=== PATIENT | male | born 1965 | race Hispanic/Latino ===

== ENCOUNTER 2023-09-08 17:38 | Inpatient (IN) | payer MEDICAID ==
[~2023-09-08] VITALS: Ht 170.2 cm; Wt 108.0 kg
[2023-09-08 18:15] LABS: BASOPHILS # (AUTO) 0.06 K/uL (0.00-0.20); BASOPHILS % (AUTO) 0.7 % (0.0-5.0); EOSINOPHILS # (AUTO) 0.31 K/uL (0.00-0.70); EOSINOPHILS % (AUTO) 3.8 % (0.0-8.0); HEMATOCRIT 41.5 % (42-54); IMMATURE GRANULOCYTE ABSOLUTE 0.04 K/uL (0-1); LYMPHOCYTES # (AUTO) 2.7 K/uL (1.0-4.8); LYMPHOCYTES % (AUTO) 33.1 % (21.0-51.0); MEAN CORPUSCULAR HEMOGLOBIN 29.3 pg (27.0-33.0); MEAN CORPUSCULAR VOLUME 88.9 fL (79-99); MONOCYTES # (AUTO) 0.6 K/uL (0.1-1.0); MONOCYTES % (AUTO) 7.8 % (3.0-13.0); NEUTROPHILS # (AUTO) 4.4 K/uL (1.8-7.7); NEUTROPHILS % (AUTO) 54.1 % (40.0-77.0); PLATELET COUNT (AUTO) 249 K/uL (130-400); RED BLOOD CELL COUNT(AUTO) 4.67 MIL/uL (4.50-6.20); RED CELL DISTRIBUTION WIDTH 14.1 % (11.0-15.5); WHITE BLOOD COUNT (AUTO) 8.1 K/uL (4.8-10.8)
[2023-09-08 18:25] LABS: POTASSIUM 3.4 mmol/L (3.5-5.1)
[2023-09-08 18:34] LABS: ALBUMIN 3.7 g/dL (3.5-5.0); BILIRUBIN,TOTAL 0.2 mg/dL (0.2-1.0); TOTAL PROTEIN, SERUM 7.6 g/dL (6.0-8.3)
[2023-09-09] MEDS ORDERED: KCL 20 MEQ ERTAB PO PRN (01:30)
[2023-09-09] MEDS ORDERED: ONDANSETRON 4MG INJ IV PRN (01:30)
[2023-09-09] MEDS ORDERED: DEXTROSE 50%-WATER 50 ML DISP.SYRIN IV PRN (01:30)
[2023-09-09] MEDS ORDERED: POTASSIUM CHLORIDE 10% ELIXIR 20 MEQ/15 ML UDCUP PO PRN (01:30)
[2023-09-09] MEDS ORDERED: 0.9%NACL 1000ML 1,000 ML IV ONE (01:30)
[2023-09-09] MEDS ORDERED: POTASSIUM CHLORIDE 20MEQ/100ML 100 ML IV PRN ×2 (01:30)
[2023-09-09] MEDS ORDERED: GLUCAGON 1MG KIT 1 MG ML IM PRN (01:30)
[2023-09-09 01:42] LABS: BASOPHILS # (AUTO) 0.07 K/uL (0.00-0.20); BASOPHILS % (AUTO) 0.8 % (0.0-5.0); EOSINOPHILS # (AUTO) 0.19 K/uL (0.00-0.70); EOSINOPHILS % (AUTO) 2.1 % (0.0-8.0); HEMATOCRIT 39.2 % (42-54); IMMATURE GRANULOCYTE ABSOLUTE 0.03 K/uL (0-1); LYMPHOCYTES # (AUTO) 2.5 K/uL (1.0-4.8); MEAN CORPUSCULAR HEMOGLOBIN 29.6 pg (27.0-33.0); MEAN CORPUSCULAR HGB CONC 33.9 g/dL (32.0-36.0); MEAN CORPUSCULAR VOLUME 87.3 fL (79-99); MONOCYTES # (AUTO) 0.8 K/uL (0.1-1.0); MONOCYTES % (AUTO) 8.2 % (3.0-13.0); NEUTROPHILS # (AUTO) 5.7 K/uL (1.8-7.7); NEUTROPHILS % (AUTO) 61.6 % (40.0-77.0); PLATELET COUNT (AUTO) 222 K/uL (130-400); RED BLOOD CELL COUNT(AUTO) 4.49 MIL/uL (4.50-6.20); WHITE BLOOD COUNT (AUTO) 9.2 K/uL (4.8-10.8)
[2023-09-09 01:54] LABS: INR 0.94 (0.85-1.15); PROTHROMBIN TIME 10.9 SEC (9.6-11.6)
[2023-09-09 01:56] LABS: PARTIAL THROMBOPLASTIN TIME 32.1 SEC (26.3-35.5)
[2023-09-09 01:57] LABS: HEMOGLOBIN A1C 7.4 % (4.0-6.0)
[2023-09-09 02:09] LABS: ALBUMIN 3.3 g/dL (3.5-5.0); BILIRUBIN,TOTAL 0.4 mg/dL (0.2-1.0); CREATININE 0.9 mg/dL (0.5-1.5); MAGNESIUM 1.5 mg/dL (1.80-2.40); POTASSIUM 3.2 mmol/L (3.5-5.1); THYROID STIMULATING HORMONE 2.69 uIU/mL (0.36-3.74); TOTAL PROTEIN, SERUM 7.1 g/dL (6.0-8.3)
[2023-09-09] MEDS: MAGNESIUM 2GM PREMIX 50ML 50 ML IV PRN ×2 (04:41→18:21)
[2023-09-09] MEDS: INSULIN HUMULIN R 100 UNIT/ML 3ML SQ SCH ×4 (06:00→20:39)
[2023-09-09 08:00] VITALS: BP 129/69; PULSE 61; RESP 18; O2SAT 97
[2023-09-09] MEDS: FAMOTIDINE 20MG VIAL IV SCH ×2 (09:53→20:23)
[2023-09-09] MEDS: ASPIRIN 81 MG EC TAB PO SCH (09:53)
[2023-09-09] MEDS: ENOXAPARIN SODIUM 40 MG/0.4 ML SYRINGE SQ SCH (09:55)
[2023-09-09 11:00] VITALS: O2SAT 97
[2023-09-09 12:00] VITALS: BP 131/69; PULSE 63; RESP 19
[2023-09-09 16:00] VITALS: BP 130/64; PULSE 62; RESP 19
[2023-09-09 17:25] LABS: MAGNESIUM 1.8 mg/dL (1.80-2.40); POTASSIUM 3.6 mmol/L (3.5-5.1)
[2023-09-09 20:00] VITALS: BP 124/72; PULSE 66; RESP 20
[2023-09-09] MEDS ORDERED: ATORVASTATIN 20 MG TABLET PO SCH (21:00)
[2023-09-09 21:41] VITALS: O2SAT 97
[2023-09-10] VITALS: BP 136/77; PULSE 60; RESP 18
[2023-09-10 04:00] VITALS: BP 133/79; PULSE 61; RESP 20
[2023-09-10 04:36] LABS: HEMATOCRIT 37.7 % (42-54); MEAN CORPUSCULAR HEMOGLOBIN 29.2 pg (27.0-33.0); MEAN CORPUSCULAR HGB CONC 33.2 g/dL (32.0-36.0); MEAN CORPUSCULAR VOLUME 88.1 fL (79-99); RED BLOOD CELL COUNT(AUTO) 4.28 MIL/uL (4.50-6.20); RED CELL DISTRIBUTION WIDTH 14.1 % (11.0-15.5); WHITE BLOOD COUNT (AUTO) 7.6 K/uL (4.8-10.8)
[2023-09-10 04:50] LABS: MAGNESIUM 1.6 mg/dL (1.80-2.40)
[2023-09-10] MEDS: INSULIN HUMULIN R 100 UNIT/ML 3ML SQ SCH ×2 (05:51→11:29)
[2023-09-10] MEDS: MAGNESIUM 2GM PREMIX 50ML 50 ML IV PRN (06:10)
[2023-09-10 08:00] VITALS: BP 125/71; PULSE 56; RESP 17
[2023-09-10] MEDS ORDERED: IOHEXOL-350 75 ML VIAL IV ONE ×2 (08:26→09:05)
[2023-09-10] MEDS ORDERED: VALACYCLOVIR HCL 500 MG TABLET PO SCH (09:00)
[2023-09-10] MEDS: ENOXAPARIN SODIUM 40 MG/0.4 ML SYRINGE SQ SCH (09:55)
[2023-09-10] MEDS: ASPIRIN 81 MG EC TAB PO SCH (09:55)
[2023-09-10] MEDS: FAMOTIDINE 20MG VIAL IV SCH (09:56)
[2023-09-10 12:00] VITALS: BP 139/67; PULSE 57; RESP 17
[2023-09-10] MEDS ORDERED: GABA600T10 PO (12:36)
[2023-09-10] MEDS ORDERED: ATOR10TA69 PO (12:36)
[2023-09-10] MEDS ORDERED: PIOG30TA70 PO (12:36)
[2023-09-10] MEDS ORDERED: METF-446 PO (12:36)
[2023-09-10] MEDS ORDERED: GLIM4TAB36 PO (12:36)
[2023-09-10] MEDS ORDERED: AMLO-257 PO (12:36)
[2023-09-10] MEDS ORDERED: DICL75TA5 PO (12:36)
[2023-09-10] MEDS ORDERED: OLME-9 PO (12:36)
[2023-09-10] MEDS ORDERED: AEC81 PO (12:41)
[2023-09-11] MEDS ORDERED: OLMESARTAN HCTZ PO SCH (09:00)
[2023-09-11] MEDS ORDERED: AMLODIPINE 5 MG TAB PO SCH (09:00)
== END 2023-09-10 14:05 | disposition home or self-care (01) | DRG 45 ==
LOC: EDH 17:38 → EDHIP 17:39 → UNDOADMIN 09-09 01:14 → EDHIP 09-09 01:14 → 4AH 09-09 03:09 → EDHIP 09-09 03:09
PROVIDERS: ADMIT Internal Medicine; ATTEND Internal Medicine
DX: I63.9 Cerebral infarction, unspecified (principal); D64.9 Anemia, unspecified; E87.6 Hypokalemia; E11.9 Type 2 diabetes mellitus without complications; E78.00 Pure hypercholesterolemia, unspecified; I10 Essential (primary) hypertension; Z79.82 Long term (current) use of aspirin; Z79.84 Long term (current) use of oral hypoglycemic drugs; Z79.899 Other long term (current) drug therapy
CPT/HCPCS: 36415; 70450; 70496; 70498; 70551; 71045; 80048; 80053; 80061; 82948; 83036; 83735; 84132; 84443; 84484; 85025; 85027; 85610; 85730; 92522; 92610; 93005; 93306; 93356; G0378; J1650; J3475; J3480; J3490; Q9967; A4216